=== PATIENT | female | born 1995 ===

== ENCOUNTER 2017-09-12 00:36 | Emergency (ER) | payer MEDICAID ==
[2017-09-12 00:36] VITALS: BMI 16.7
[2017-09-12] MEDS ORDERED: Naproxen 500 MG TAB PO STA (01:27)
[2017-09-12] MEDS ORDERED: Dexamethasone 4 mg/1 ml IM STA (01:27)
--- NOTE | 2017-09-12 03:20 | ED PDOC ---
HPI: CCC, URI, Sore Throat Time Seen by Provider: 09/12/17 01:00 Chief Complaint (Nursing): ENT Problem Chief Complaint (Provider): ENT Problem History Per: Patient History/Exam Limitations: no limitations Onset/Duration Of Symptoms: Days (x7) Location Of Pain: Throat Associated Symptoms: Sore Throat, Cough, Nasal Congestion. denies: Fever, Vomiting, Diarrhea Additional Complaint(s): Juli Montanez is a 22 year old female with no past medical history, who is presenting to the ER with complaints of sore throat, onset 1 week ago. Patient states that symptoms worsened 3 days ago and are now associated with nasal congestion and cough. She reports that she took ross seltzer plus at home without relief of symptoms. Patient denies any fever, rash, vomiting, diarrhea, sick contacts, chest pain, or recent travel. Note: last normal menstrual period : 08/27/17 PMD: Dr. De La Garza Past Medical History Reviewed: Historical Data, Nursing Documentation, Vital Signs Vital Signs: Last Vital Signs Temp 98.6 F 09/12/17 03:46 Pulse 88 09/12/17 03:46 Resp 16 09/12/17 03:46 BP 118/70 09/12/17 03:46 Pulse Ox 97 09/12/17 03:46 - Medical History PMH: No Chronic Diseases - Surgical History Surgical History: - Family History Family History: States: Unknown Family Hx - Home Medications Home Medications: Ambulatory Orders Medication Instructions Recorded Levofloxacin [Levaquin] 500 mg PO DAILY 07/07/16 Norethindrone AC-Eth Estradiol 1 tab PO DAILY 07/07/16 [Junel 1 mg-20 Mcg Tablet] Sulfamethoxazole/Trimethoprim 1 each PO BID #20 tablet 07/07/16 [Bactrim 400-80 mg Tablet] predniSONE [predniSONE Tab] 20 mg PO 12 #12 tab 07/07/16 Naproxen 500 mg PO BID #20 tab 09/12/17 Naproxen 500 mg PO BID #20 tab 09/12/17 - Allergies Allergies/Adverse Reactions: Allergies Allergy/AdvReac Type Severity Reaction Status Date / Time No Known Allergies Allergy Verified 09/12/17 00:41 Review of Systems ROS Statement: Except As Marked, All Systems Reviewed And Found Negative Constitutional: Negative for: Fever ENT: Positive for: Nose Congestion, Throat Pain Cardiovascular: Negative for: Chest Pain Respiratory: Positive for: Cough Gastrointestinal: Negative for: Vomiting, Diarrhea Skin: Negative for: Rash Physical Exam - Reviewed Nursing Documentation Reviewed: Yes Vital Signs Reviewed: Yes - Physical Exam Comments: GENERAL APPEARANCE: Patient is awake, alert, oriented x 3, in no acute distress. Ambulatory in ED with a steady gait. SKIN: Warm, dry; (-) cyanosis. EYES: (-) conjunctival pallor. ENMT: Mucous membranes moist. Airway patent: (-) stridor. Pharynx: (-) tonsillar swelling, (+) erythema, (-) exudate. Uvula midline. TMs (-) erythema ( -) bulging. NECK: Supple, FROM (-) tenderness, (-) stiffness CHEST AND RESPIRATORY: (-) rhonchi, (-) rales, (-) wheezes, (-) pleural rub; breath sounds equal bilaterally. Speaking in full sentences, respirations even and nonlabored. HEART AND CARDIOVASCULAR: (-) irregularity; (-) murmur, (-) gallop. ABDOMEN AND GI: Soft; (-) tenderness (-) guarding (-) distention. EXTREMITIES: (-) deformity; (-) edema. NEURO AND PSYCH: Mental status as above. Cranial nerves grossly intact; strength symmetric. - ECG O2 Sat by Pulse Oximetry: 99 (RA) Pulse Ox Interpretation: Normal Medical Decision Making Medical Decision Making: Time: 1:27 Impression: viral pharyngitis Plan: --Decadron Inj 10 mg IM --Naproxen 500 mg PO --Throat Culture --Rapid Strep Group A Antigen 0335 Rapid Strep: Negative On re-evaluation, patient reports improvement of symptoms. On exam, patient remains AAOx3, in no acute distress. Lungs clear to auscultation, cardiac RRR, abdomen soft, non-tender, repeat neuro exam shows no focal findings. VSS. Lab results reviewed, Diagnostic results d/w the patient in great detail. Diagnosis of viral pharyngitis, acute throat pain d/w the patient. Based on history, exam and diagnostic results, plan will be for outpatient follow up. Patient instructed to follow-up with pmd / referral provided / the clinic in 1- 2 days without fail. Advised to take medication as prescribed. Return to the emergency room at any time for any new or worsening symptoms. Patient states she fully agrees with and understands discharge instructions. States that she agrees with the plan and disposition. Verbalized and repeated discharge instructions and plan. I have given the patient opportunity to ask any additional questions. Scribe Attestation: Documented by Danica Ga acting as a scribe for Tawana Moreno PA-C., MD Scribe Attestation: All medical record entries made by the Scribe were at my direction and personally dictated by me. I have reviewed the chart and agree that the record accurately reflects my personal performance of the history, physical exam, medical decision making, and the department course for this patient. I have also personally directed, reviewed, and agree with the discharge instructions and disposition. Disposition - Clinical Impression Clinical Impression: Viral pharyngitis - Patient ED Disposition Is Patient to be Admitted: No Counseled Patient/Family Regarding: Studies Performed, Diagnosis, Need For Followup, Rx Given - Disposition Referrals: [facility] [Outside] Disposition: Routine/Home Disposition Time: 03:33 Condition: FAIR Prescriptions: Naproxen 500 mg PO BID #20 tab Naproxen 500 mg PO BID #20 tab Instructions: Viral Pharyngitis, Sore Throat in Adults Forms: [employer] (Uzbek) Print Language: WOLOF - POA Present On Arrival: None Results - Lab Results Lab Results: 09/12/17 02:40 Grp A Beta Strep Ag Negative
[2017-09-12 03:47] VITALS: BP 118/70; PULSE 88; RESP 16; TEMP 98.6
[2017-09-12 05:09] VITALS: O2SAT 99
== END 2017-09-12 03:46 | disposition home or self-care (01) ==
LOC: H.ER 00:36
DX: J02.9 Acute pharyngitis, unspecified (principal)
CPT/HCPCS: 87070; 87430; 96372; 99283; J1100

== ENCOUNTER 2018-01-15 10:09 | Emergency (ER) | payer MEDICAID ==
[2018-01-15 10:11] VITALS: BMI 16.1
[2018-01-15 10:13] VITALS: BP 115/77; PULSE 82; RESP 18; TEMP 98.3
[2018-01-15 10:19] VITALS: O2SAT 98
--- NOTE | 2018-01-15 10:39 | ED PDOC ---
HPI: Allergic Reaction Time Seen by Provider: 01/15/18 10:18 Chief Complaint (Nursing): Abnormal Skin Integrity Chief Complaint (Provider): Rash History Per: Patient History/Exam Limitations: no limitations Onset/Duration Of Symptoms: Days (years) Additional Complaint(s): Pt. states she gets rashes in different places that come sporadically, more during the winter time. Sha seen multiple doctors and ERs/urgent cares for it. Has gotten steroids, steroid creams, and other treatments for it. It does go away, unclear what makes it go way. Since , she got rashes on her right leg. Are in patches. No dc, pain, numbness, tingles. No weakness. No chest pain, dyspnea, fever, cough. No new food, drinks, lotions, or anything different. Has not seen an field radio operator for testing. Is itchy. Past Medical History Reviewed: Nursing Documentation, Vital Signs Vital Signs: Last Vital Signs Temp 98.3 F 01/15/18 10:11 Pulse 82 01/15/18 10:11 Resp 18 01/15/18 10:11 BP 115/77 01/15/18 10:11 Pulse Ox 98 01/15/18 10:17 - Medical History PMH: No Chronic Diseases - Surgical History Surgical History: - Family History Family History: States: Unknown Family Hx - Living Arrangements Living Arrangements: With Family - Social History Alcohol: None Drugs: Denies - Home Medications Home Medications: Ambulatory Orders Medication Instructions Recorded Levofloxacin [Levaquin] 500 mg PO DAILY 07/07/16 Norethindrone AC-Eth Estradiol 1 tab PO DAILY 07/07/16 [Junel 1 mg-20 Mcg Tablet] Sulfamethoxazole/Trimethoprim 1 each PO BID #20 tablet 07/07/16 [Bactrim 400-80 mg Tablet] predniSONE [predniSONE Tab] 20 mg PO 12 #12 tab 07/07/16 Naproxen 500 mg PO BID #20 tab 09/12/17 Naproxen 500 mg PO BID #20 tab 09/12/17 DiphenhydrAMINE [Benadryl] 25 mg PO TID PRN 5 Days cap 01/15/18 predniSONE [predniSONE Tab] 20 mg PO BID 5 Days tab 01/15/18 - Allergies Allergies/Adverse Reactions: Allergies Allergy/AdvReac Type Severity Reaction Status Date / Time No Known Allergies Allergy Verified 01/15/18 10:16 Review of Systems Constitutional: Negative for: Fever, Weakness Eyes: Negative for: Vision Change ENT: Negative for: Mouth Pain, Mouth Swelling Cardiovascular: Negative for: Chest Pain Respiratory: Negative for: Cough, Shortness of Breath Gastrointestinal: Negative for: Nausea, Vomiting, Abdominal Pain, Diarrhea Musculoskeletal: Negative for: Neck Pain, Back Pain Skin: Positive for: Rash Neurological: Negative for: Weakness Physical Exam - Reviewed Nursing Documentation Reviewed: Yes Vital Signs Reviewed: Yes - Physical Exam Appears: Positive for: Well, Non-toxic, No Acute Distress Head Exam: Positive for: ATRAUMATIC, NORMAL INSPECTION, NORMOCEPHALIC Skin: Negative for: Pallor Eye Exam: Positive for: EOMI, Normal appearance, PERRL ENT: Positive for: Normal ENT Inspection Neck: Positive for: Normal, Painless ROM, Supple Cardiovascular/Chest: Positive for: Regular Rate, Rhythm Respiratory: Positive for: CNT, Normal Breath Sounds Gastrointestinal/Abdominal: Positive for: Normal Exam, Soft. Negative for: Tenderness Back: Positive for: Normal Inspection. Negative for: L CVA Tenderness, R CVA Tenderness Extremity: Positive for: Normal ROM, Other (R lateral upper leg and L dorsal proximal forearm with several patches of erythema; blanching; nontender; no dc; no induration; in urticarial pattern.). Negative for: Tenderness Neurologic/Psych: Positive for: Alert, Oriented - ECG O2 Sat by Pulse Oximetry: 98 Pulse Ox Interpretation: Normal - Progress ED Course And Treament: 1042: Advised to fu with pcp and field radio operator. AAOx3. Tolerated PO. Refused benadryl. Disposition - Clinical Impression Clinical Impression: Dermatitis - Patient ED Disposition Is Patient to be Admitted: No Counseled Patient/Family Regarding: Diagnosis, Need For Followup, Rx Given - Disposition Referrals: Jessica Rm MD [Staff Provider] - 01/17/18 Disposition: Routine/Home Disposition Time: 10:35 Condition: STABLE Additional Instructions: Return if not better in 3 days. Prescriptions: DiphenhydrAMINE [Benadryl] 25 mg PO TID PRN 5 Days cap PRN Reason: Itching / Pruritus predniSONE [predniSONE Tab] 20 mg PO BID 5 Days tab Instructions: Dermatitis Forms: [employer] (Maldivian)
== END 2018-01-15 11:06 | disposition home or self-care (01) ==
LOC: H.ER 10:09
DX: L30.9 Dermatitis, unspecified (principal)

== ENCOUNTER 2018-04-21 07:52 | Emergency (ER) | payer MEDICAID ==
[2018-04-21 07:52] VITALS: BMI 16.1
[2018-04-21 08:05] VITALS: BP 113/75; PULSE 84; RESP 18; TEMP 98.3
[2018-04-21 09:20] VITALS: O2SAT 100
--- NOTE | 2018-04-21 09:25 | ED PDOC ---
HPI: General Adult Time Seen by Provider: 04/21/18 08:00 Chief Complaint (Nursing): Abnormal Skin Integrity Chief Complaint (Provider): Abnormal Skin Integrity History Per: Patient History/Exam Limitations: no limitations Onset/Duration Of Symptoms: Days (years) Current Symptoms Are (Timing): Still Present Additional Complaint(s): 23 year old female presents to the ED with a diffuse rash that she reports is intermittent since 2011. The rash is present on her neck, hands and leg and is described as "very itchy". The patient was seen by multiple providers in the past and was given topical creams without relief. She was told to follow up with an affiliate manager at her last visit which she never did. Otherwise, she denies fever, shortness of breath, chest pain and any flu like symptoms. she states that her son and mother who live with her also have the same rash. PMD: [place] Past Medical History Reviewed: Historical Data, Nursing Documentation, Vital Signs Vital Signs: Last Vital Signs Temp 98.3 F 04/21/18 08:02 Pulse 84 04/21/18 08:02 Resp 18 04/21/18 08:02 BP 113/75 04/21/18 08:02 Pulse Ox 100 04/21/18 09:05 - Medical History PMH: No Chronic Diseases - Surgical History Surgical History: - Family History Family History: States: Unknown Family Hx - Social History Current smoker - smoking cessation education provided: No Alcohol: None Drugs: Denies - Home Medications Home Medications: Ambulatory Orders Medication Instructions Recorded Levofloxacin [Levaquin] 500 mg PO DAILY 07/07/16 Norethindrone AC-Eth Estradiol 1 tab PO DAILY 07/07/16 [Junel 1 mg-20 Mcg Tablet] RX: predniSONE [predniSONE Tab] 20 mg PO 12 #12 tab 07/07/16 Sulfamethoxazole/Trimethoprim 1 each PO BID #20 tablet 07/07/16 [Bactrim 400-80 mg Tablet] RX: Naproxen 500 mg PO BID #20 tab 09/12/17 RX: Naproxen 500 mg PO BID #20 tab 09/12/17 DiphenhydrAMINE [Benadryl] 25 mg PO TID PRN 5 Days cap 01/15/18 RX: predniSONE [predniSONE Tab] 20 mg PO BID 5 Days tab 01/15/18 - Allergies Allergies/Adverse Reactions: Allergies Allergy/AdvReac Type Severity Reaction Status Date / Time No Known Allergies Allergy Verified 04/21/18 08:05 Review of Systems ROS Statement: Except As Marked, All Systems Reviewed And Found Negative Constitutional: Negative for: Fever, Chills Respiratory: Negative for: Shortness of Breath Skin: Positive for: Rash (diffuse) Physical Exam - Reviewed Nursing Documentation Reviewed: Yes Vital Signs Reviewed: Yes - Physical Exam Appears: Positive for: Non-toxic, No Acute Distress Head Exam: Positive for: ATRAUMATIC, NORMAL INSPECTION, NORMOCEPHALIC Skin: Positive for: Warm, Dry, Rash (diffuse raised clusters of bites on neck, legs and hands, no cellulitis or open wounds) Eye Exam: Positive for: EOMI, Normal appearance, PERRL ENT: Positive for: Normal ENT Inspection Neck: Positive for: Normal, Painless ROM, Supple Cardiovascular/Chest: Positive for: Regular Rate, Rhythm. Negative for: Murmur Respiratory: Positive for: Normal Breath Sounds. Negative for: Respiratory Distress Gastrointestinal/Abdominal: Positive for: Normal Exam Back: Positive for: Normal Inspection Extremity: Positive for: Normal ROM Neurologic/Psych: Positive for: Alert, Oriented - ECG O2 Sat by Pulse Oximetry: 100 (RA) Pulse Ox Interpretation: Normal Medical Decision Making Medical Decision Makin:38 Impression: rash . pt requesting dose of oral steroids. pt already using hydrocortisone cream prn. Initial Plan: --Prednisone 40 mg PO 09:15 --Upon reevaluation, patient reports improvement in symptoms and is stable. Will be discharged. Follow up with affiliate manager and PMD. Scribe Attestation: Documented by Miriam Bowser acting as a scribe for Renetta Sanches MD Provider Scribe Attestation: All medical record entries made by the Scribe were at my direction and personally dictated by me. I have reviewed the chart and agree that the record accurately reflects my personal performance of the history, physical exam, medical decision making, and the department course for this patient. I have also personally directed, reviewed, and agree with the discharge instructions and disposition. Disposition - Clinical Impression Clinical Impression: Bug bites - Patient ED Disposition Is Patient to be Admitted: No Counseled Patient/Family Regarding: Studies Performed, Diagnosis, Need For Followup - Disposition Disposition: Routine/Home Disposition Time: 09:15 Condition: IMPROVED Additional Instructions: follow up with affiliate manager as referred to your by your primary doctor this week continue hydrocortisone cream as needed for rash return to the ED with any worsening or concerning symptoms Instructions: Insect Bites and Stings (DC) Forms: [employer] (Portuguese)
== END 2018-04-21 09:19 | disposition home or self-care (01) ==
LOC: H.ER 07:52
DX: T14.8XXA Other injury of unspecified body region, initial encounter (principal); W57.XXXA Bitten or stung by nonvenomous insect and other nonvenomous arthropods, initial encounter; Y92.89 Other specified places as the place of occurrence of the external cause